=== PATIENT | female | born 1935 | race Caucasian/White ===

== ENCOUNTER 2019-04-10 07:03 | Emergency (ER) | payer MEDICARE, MEDICAID, SELFPAY ==
[2019-04-10 07:04] VITALS: BP 96/78; PULSE 86; RESP 36; TEMP 38.2; O2SAT 83
[2019-04-10 07:05] VITALS: BMI 29.2
--- NOTE | 2019-04-10 07:07 | ED_ITS ---
Entered by Latisha Mathew, acting as scribe for Curtis Christian DO HPI - Altered Mental Status General: Chief Complaint: Altered Mental Status Stated Complaint: AMS Time Seen by Provider: 04/10/19 07:09 History of Present Illness: HPI narrative: 83 yo female presents with altered mental status. Pt fell 1 week ago, but was never checked out for it. [place] [facility] [place], the nurses are having a hard time with keeping her blood sugar under control. When patient arrived she is totally unresponsive son is with her she is a no code. She is in respiratory distress was initially started on BiPAP because of the no code order. MD complaint: altered mental status Review of Systems General: Reports: ROS unobtainable due to mental status Const: Reports: fever and malaise Resp: Reports: shortness of breath and wheezing PFSH ED PFSH: Statuses (acute, chronic, etc) shown below reflect problem list status as previously entered and may not be historically accurate Medical History Anemia (Acute) CKD (chronic kidney disease) (Acute) COPD (chronic obstructive pulmonary disease) (Acute) GERD (gastroesophageal reflux disease) (Acute) HTN (hypertension) (Acute) Shortness of breath (Acute) Tachycardia (Acute) Social History Smoking and tobacco status: never smoked Physical Exam Const: EXAM LIMITATIONS: altered mental status GENERAL APPEARANCE: ill appearing and frail appearing NUTRITIONAL APPEARANCE: obese ORIENTATION/CONSCIOUSNESS: Yes obtunded; not awake HENMT: COMMON NORMALS: normocephalic, head/scalp atraumatic, EAC's normal, TM's normal bilaterally, external nose normal and oropharynx normal HEAD & SCALP: normocephalic and atraumatic NOSE: external nose normal EXTERNAL AUDITORY CANAL: EAC's normal TYMPANIC MEMBRANE: TM's normal bilaterally Eye: COMMON NORMALS: PERRL, EOMs intact bilaterally, conjunctivae normal and no scleral icterus CONJUNCTIVA: Yes conjunctivae normal PUPIL: Yes PERRL Neck/C-Spine: THYROID: asymmetrical Lymph: LYMPHATIC: no lymphadenopathy noted Resp: COMMON NORMALS: negative for normal respiratory effort, negative for no retractions and negative for no use of accessory muscles EFFORT & INSPECTION: Yes abnormal respiratory pattern, Yes respiratory distress, Yes decreased respiratory effort, Yes labored, Yes grunting, Yes uses accessory muscles and Yes audible wheezes AUSCULTATION: rhonchi throughout and wheezes throughout Cardio: COMMON NORMALS: regular rate and regular rhythm RATE: regular rate RHYTHM: regular rhythm HEART SOUNDS: no murmurs GI: COMMON NORMALS: normal to inspection, nondistended, normoactive bowel sounds, soft to palpation and no hepatosplenomegaly PALPATION: Yes soft and Yes no hepatosplenomegaly : COMMON NORMALS: Yes no CVA tenderness BLADDER/KIDNEY EXAM: Yes no CVA tenderness Back/Pelvis: COMMON NORMALS: no CVA tenderness LUMBAR SPINE/LOWER BACK: Yes normal to inspection Extremity: COMMON NORMALS: no clubbing, cyanosis or edema, no calf tenderness and no pedal edema Neuro: KATHARINE COMA SCALE: document GCS findings Katharine coma scale eye opening: None Drummond coma scale verbal response: None Drummond coma scale motor response: Normal flexion Drummond coma scale total score: 6 Skin: COMMON NORMALS: no rashes or lesions noted GENERAL SKIN EXAM: no rashes or lesions noted and mottling Course ED course: Initially evaluated the patient were a little bit reserved because of her no code order. Once his son arrived reviewed our findings with him she is in acute respiratory distress renal failure and his severe hyperkalemia. Also believe she is most likely septic suspect she has underlying pneumonia vs exacerbation COPD (despite normal CXR). Discussed with his son we can treat at least what we can short of intubating and doing code however given her multiple multiple comorbidities and multisystem involvement at this time it is unlikely she will have a good prognosis. Son discussed with the family and ultimately they decided to return to the custodial on hospice. BiPAP was withdrawn. Arrangements were being made for hospice and transport back to the custodial and the patient further decompensated family was at the bedside questions were answered they did not wish to have any intervention and patient was allowed to pass away. Vital Signs: Vital signs: Vital Signs Temperature 100.7 F H 04/10/19 07:04 Pulse Rate 75 04/10/19 09:02 Respiratory Rate 35 H 04/10/19 08:13 Blood Pressure 96/78 04/10/19 07:04 Pulse Oximetry 94 04/10/19 09:02 MDM - Altered Mental Status Lab Data: Labs: Lab Results 04/10/19 04/10/19 04/10/19 Range/Units 07:26 07:26 07:30 WBC (4.0-10.0) 10^3/ uL RBC (4.1-5.3) 10^6/u L Hgb (11.5-15.3) g/dL Hct (37.0-47.0) % MCV (81-99) fL MCH (28.0-34.0) pg MCHC (30.0-36.0) g/dL RDW (12.1-15.1) % Plt Count (130-400) 10^3/c mm MPV (7.4-10.4) fL Neut % (Auto) % Lymph % (Auto) % Lares % (Auto) % Eos % (Auto) % Baso % (Auto) % Neut # (Auto) (1.8-7.7) 10^3/u L Lymph # (Auto) (0.8-4.8) 10^3/u L Lares # (Auto) (0.2-0.9) 10^3/u L Eos # (Auto) (0.0-0.8) 10^3/u L Baso # (Auto) (0.0-0.1) 10^3/u L Nucleated RBC % (a uto) % Nucleated RBCs # /100WBC Specimen Type Arterial Sample Site Brachial, right ABG pH 7.21 L (7.35-7.45) ABG pCO2 26.1 L (35-45) mmHg ABG pO2 178.0 H* (80.0-100.0) mmH g ABG HCO3 10.5 L (22-26) mmol/L ABG Base Excess -15.8 L (-2.0-2.0) mmol/ L Timoteo Test N/a Hematocrit 36.0 L (37-47) % Hgb O2 Saturation 97.6 (95-100) % Carboxyhemoglobin 0.6 (0.4-20.1) %THgb Methemoglobin 1.0 (0.4-1.5) % Total Hemoglobin 11.8 L (12-16) g/dL O2 Delivery Device Bipap FiO2 60.0 % Computer Numerical Control Grinder ID glc Sodium 134 L (136-145) mmol/L Potassium 6.0 H (3.5-5.1) mmol/L Chloride 92 L (98-107) mmol/L Carbon Dioxide 14 L (22-29) mmol/L Anion Gap 34.0 H (5-19) BUN 34 H (8-23) mg/dL Creatinine 3.1 H (0.5-0.9) mg/dL Glucose 386 H (74-106) mg/dL Lactate 12.2 H* (0.5-2.2) mmol/L Calcium 8.8 (8.5-10.5) mg/dL Total Bilirubin 1.2 (0.15-1.2) mg/dL AST 645 H (0-32) U/L ALT 573 H (0-33) U/L Alkaline Phosphata se 93 (35-105) IU/L Total Protein 5.9 L (6.6-8.7) g/dL Albumin 3.3 L (3.5-5.2) g/dL Globulin 2.6 (1.3-4.6) g/dL Lipase 14 (13-60) U/L Urine Color (Yellow) Urine Appearance (CLEAR) Urine pH (5-7) Ur Specific Gravit y (1.005-1.030) Urine Protein (Negative) Urine Glucose (UA) (Normal) Urine Ketones (Negative) Urine Occult Blood (Negative) Urine Nitrate (Negative) Urine Bilirubin (NEGATIVE) Urine Urobilinogen (Negative) mg/dL Ur Leukocyte Glo ase (Negative) Urine RBC (0-2) /hpf Urine WBC (0-5) /hpf Ur Squamous Epith Cells (0-5) Ur Transition Epit h Cell /hpf Amorphous Sediment Urine Bacteria (NONE) Hyaline Casts Urine Mucus Influenza Type A A g (Negative) POC Influenza B Ag (Negative) 04/10/19 04/10/19 04/10/19 Range/Units 08:10 08:50 08:53 WBC 6.3 (4.0-10.0) 10^3/ uL RBC 3.79 L (4.1-5.3) 10^6/u L Hgb 12.4 (11.5-15.3) g/dL Hct 40.5 (37.0-47.0) % MCV 106.9 H (81-99) fL MCH 32.7 (28.0-34.0) pg MCHC 30.6 (30.0-36.0) g/dL RDW 14.8 (12.1-15.1) % Plt Count 71 L (130-400) 10^3/c mm MPV 11.1 H (7.4-10.4) fL Neut % (Auto) 79.6 % Lymph % (Auto) 7.0 % Lares % (Auto) 4.8 % Eos % (Auto) 0.0 % Baso % (Auto) 0.3 % Neut # (Auto) 5.0 (1.8-7.7) 10^3/u L Lymph # (Auto) 0.4 L (0.8-4.8) 10^3/u L Lares # (Auto) 0.3 (0.2-0.9) 10^3/u L Eos # (Auto) 0.0 (0.0-0.8) 10^3/u L Baso # (Auto) 0.0 (0.0-0.1) 10^3/u L Nucleated RBC % (a uto) 0.8 % Nucleated RBCs # 0.1 /100WBC Specimen Type Sample Site ABG pH (7.35-7.45) ABG pCO2 (35-45) mmHg ABG pO2 (80.0-100.0) mmH g ABG HCO3 (22-26) mmol/L ABG Base Excess (-2.0-2.0) mmol/ L Timoteo Test Hematocrit (37-47) % Hgb O2 Saturation (95-100) % Carboxyhemoglobin (0.4-20.1) %THgb Methemoglobin (0.4-1.5) % Total Hemoglobin (12-16) g/dL O2 Delivery Device FiO2 % Computer Numerical Control Grinder ID Sodium (136-145) mmol/L Potassium (3.5-5.1) mmol/L Chloride (98-107) mmol/L Carbon Dioxide (22-29) mmol/L Anion Gap (5-19) BUN (8-23) mg/dL Creatinine (0.5-0.9) mg/dL Glucose (74-106) mg/dL Lactate (0.5-2.2) mmol/L Calcium (8.5-10.5) mg/dL Total Bilirubin (0.15-1.2) mg/dL AST (0-32) U/L ALT (0-33) U/L Alkaline Phosphata se (35-105) IU/L Total Protein (6.6-8.7) g/dL Albumin (3.5-5.2) g/dL Globulin (1.3-4.6) g/dL Lipase (13-60) U/L Urine Color Yellow (Yellow) Urine Appearance Sl hazy (CLEAR) Urine pH 5 (5-7) Ur Specific Gravit y 1.015 (1.005-1.030) Urine Protein 1+ H (Negative) Urine Glucose (UA) 1+ (Normal) Urine Ketones Negative (Negative) Urine Occult Blood Neg (Negative) Urine Nitrate Negative (Negative) Urine Bilirubin Neg (NEGATIVE) Urine Urobilinogen Norm (Negative) mg/dL Ur Leukocyte Glo ase Negative (Negative) Urine RBC 0-4 H (0-2) /hpf Urine WBC 5-10 H (0-5) /hpf Ur Squamous Epith Cells 5-10 H (0-5) Ur Transition Epit h Cell 0-4 /hpf Amorphous Sediment 1+ Urine Bacteria 1+ H (NONE) Hyaline Casts 0-4 H Urine Mucus Trace Influenza Type A A g Negative (Negative) POC Influenza B Ag Negative (Negative) Discharge Plan Discharge Patient Disposition: Clinical Impression: Respiratory failure, COPD (chronic obstructive pulmonary disease), JOANNA (acute kidney injury), Acute hyperkalemia, Altered mental status Condition: Stable Referrals: Piter Bourne MD [Primary Care Provider] - Discharge Diet: Advance as tolerated Additional Instructions: Return to custodial as a Do Not Recussitate, comfort cares per family request. Consult for hospice. Discharge Date/Time: 04/10/19 12:45 Coding Level of Care Code ED Teacher Education Instructor for Chg Fwshad The documentation recorded by the Quincy dickens Kialy, accurately reflects the service I personally performed and the decisions made by Anahi reynolds Curtis L, DO Apr 10, 2019 07:03
--- NOTE | 2019-04-10 07:20 | CT_ITS ---
WS: [id number] CT HEAD NONCONTRAST HISTORY: AMS TECHNIQUE: Contiguous axial imaging performed through the brain in 2.5 mm imaging. Bone and soft tiss ue windows. Sagittal and coronal reformats reviewed. All CT scans at [facility] use at le ast one of these dose optimization techniques: automated exposure control; mA and/or kV adjustment pe r patient size (includes targeted exams where dose is matched to clinical indication); or iterative r econstruction. DLP: 997.53 mGy.cm COMPARISON: None available. No acute intracranial hemorrhage, midline shift or mass effect. Mild atrophy with severe chronic white matter ischemic disease. Large amount of beam hardening artifa ct through the posterior fossa. Ventricles: Ventricles are moderately dilated. Mild atherosclerosis intracranial carotid arteries. Paranasal sinuses: As visualized are clear. Mastoid air cells: Well pneumatized. Calvarium and scalp: Skull is intact with no soft tissue edema or swelling. CT/CT head wo con* [id number] IMPRESSION: 1. No acute intracranial hemorrhage or edema. 2. Mild atrophy with severe chronic white matter disease.
--- NOTE | 2019-04-10 07:20 | XR_ITS ---
WS: [id number] PORTABLE CHEST HISTORY: dyspnea COMPARISON: Chest CT 01/30/2019 Lung volumes are decreased. Mild chronic interstitial thickening. No definite pulmonary vasculature c ongestion. No pneumonia. No pleural effusion or pneumothorax. Cardiac size: Moderately enlarged cardiac silhouette. Mediastinum/Aorta: Fullness over the RIGHT hilum corresponds to a dilated pulmonary artery and ectati c thoracic aorta as seen on the recent chest CT. Severe osteopenia. XR/XR chest 1V portable [id number] IMPRESSION: 1. No pneumonia. 2. Markedly enlarged pulmonary artery and moderate enlargement of the cardiac silhouette.
[2019-04-10 07:32] VITALS: O2SAT 80
[2019-04-10 07:41] LABS: ABG PCO2 26.1 mmHg (35-45); ABG PH Result 7.21 (7.35-7.45); Base Excess ABG -15.8 mmol/L (-2.0-2.0); Blood Gas Operator Identificat glc; Blood Gas Sample Site Brachial, right; Blood Gas Sample Type Arterial; Carboxyhemoglobin 0.6 %THgb (0.4-20.1); HCO3 ABG 10.5 mmol/L (22-26); HGB O2 Sat 97.6 % (95-100); Oxygen Device BIPAP; Total Hemoglobin 11.8 g/dL (12-16)
[2019-04-10 08:02] LABS: Alanine Aminotransferase 573 U/L (0-33); Albumin Level 3.3 g/dL (3.5-5.2); Alkaline Phosphatase 93 IU/L (35-105); Aspartate Amino Transferase 645 U/L (0-32); Blood Urea Nitrogen 34 mg/dL (8-23); Calcium 8.8 mg/dL (8.5-10.5); Carbon Dioxide 14 mmol/L (22-29); Chloride 92 mmol/L (98-107); Creatinine Clr Calc Pharmacy 13.8196; Globulin 2.6 g/dL (1.3-4.6); Glucose 386 mg/dL (74-106); Lipase 14 U/L (13-60); Sodium 134 mmol/L (136-145); Total Bilirubin 1.2 mg/dL (0.15-1.2); Total Protein 5.9 g/dL (6.6-8.7)
[2019-04-10] MEDS: ipratropium-albuterol 3 mL Neb INHALATION (08:10)
[2019-04-10 08:11] VITALS: PULSE 79; RESP 34
[2019-04-10 08:11] LABS: Lactate (Lactic Acid level) 12.2 mmol/L (0.5-2.2)
[2019-04-10 08:13] VITALS: PULSE 78; RESP 35; O2SAT 92
[2019-04-10 08:15] VITALS: PULSE 79
[2019-04-10 08:34] LABS: Add Urine Microscopic? YES; Bilirubin Urine Neg (NEGATIVE); Blood Urine Neg (Negative); Glucose Urine UA 1+ (Normal); Ketones Urine Negative (Negative); Leukocyte Esterase Urine Negative (Negative); Nitrate Urine Negative (Negative); Protein Urine 1+ (Negative); Specific Gravity, Urine 1.015 (1.005-1.030); Urine Appearance SL Hazy (CLEAR); Urine Color Yellow (Yellow); Urobilinogen Urine Norm (Negative); pH Urine 5 (5-7)
[2019-04-10 08:38] LABS: Hyaline Casts Urine 0-4; Mucus Urine TRACE
[2019-04-10 08:39] LABS: Bacteria Urine 1+; RBC Urine 0-4 /hpf (0-2); Transitional Epi Cells Urine 0-4 /hpf
[2019-04-10 08:47] LABS: Add Urine Culture? No; Amorphous Sediment Urine 1+
[2019-04-10 09:01] LABS: Basophils % 0.3 %; Hematocrit 40.5 % (37.0-47.0); Hemoglobin 12.4 g/dL (11.5-15.3); Lymphocytes # 0.4 10^3/uL (0.8-4.8); Mean Corpuscular HGB Conc 30.6 g/dL (30.0-36.0); Mean Corpuscular Hemoglobin 32.7 pg (28.0-34.0); Mean Corpuscular Volume 106.9 fL (81-99); Mean Platelet Volume 11.1 fL (7.4-10.4); Monocytes # 0.3 10^3/uL (0.2-0.9); Monocytes % 4.8 %; Neutrophils % 79.6 %; Nucleated Red Blood Cells # 0.1 /100WBC; Nucleated Red Blood Cells % 0.8 %; Red Blood Count 3.79 10^6/uL (4.1-5.3); Red Cell Distribution Width 14.8 % (12.1-15.1); White Blood Count 6.3 10^3/uL (4.0-10.0)
[2019-04-10 09:02] VITALS: PULSE 75; RESP 37; O2SAT 94
[2019-04-10] MEDS: morphine 4 mg/mL SDV 1 mL 2 MG IVP (09:25)
[2019-04-10] MEDS: LORazepam 2 mg/mL INJ 1 mL 1 MG IVP (09:25)
[2019-04-10 09:26] LABS: Platelet Count 71 10^3/cmm (130-400)
[2019-04-10 09:27] LABS: Slide Review Slide Review Perform
[2019-04-10 09:32] LABS: Influenza A by IFA Negative (Negative); Influenza B by IFA Negative (Negative)
--- NOTE | 2019-04-10 10:14 | PC.NURSE ---
Patient became pulsesless at time of 1014. No pulses palpated central or peripheral. Rhythm strip printed Asystole. No breathing effort or breaths appreciated. Physician at bedside with family
--- NOTE | 2019-04-10 10:34 | DCPLANNER ---
technology program manager was asked to speak with patients family about hospice. Patients family chose [facility], case reviewer gave patients family patient choice letter and had family sign stating that they wanted [facility]. technology program manager also gave family the performance data information for review. technology program manager also arranged for transportation for patient. Patient did in the ED, case reviewer called and cancelled transportation and hospice care.
== END 2019-04-10 12:45 | disposition expired ==
PROVIDERS: Emergency Provider Family Medicine; Family Provider Internal Medicine; PCP Internal Medicine
DX: J96.90 Respiratory failure, unspecified, unspecified whether with hypoxia or hypercapnia (principal); J44.9 Chronic obstructive pulmonary disease, unspecified; N17.9 Acute kidney failure, unspecified; E87.5 Hyperkalemia; I10 Essential (primary) hypertension
CPT/HCPCS: 36415; 36600; 51702; 70450; 71045; 80053; 81001; 82805; 83605; 83690; 85025; 87040; 87804; 94640; 94660; 96374; 99283; J2060; J2270; J2930